=== PATIENT | female | born 1985 | race Caucasian/White ===

== ENCOUNTER → 2016-09-08 | Outpatient (CLI) | payer OTHER ==
[~2016-09-08] MED LIST: MULT-506 PO
[2016-09-08 17:23] LABS: ALT/SGPT 33 U/L (12-78); BLOOD UREA NITROGEN 15 mg/dl (7-18); BUN/CREATININE RATIO 21.6 (10-20); CARBON DIOXIDE 24 mmol/L (21-32); CHLORIDE 103 mmol/L (98-107); CREATININE 0.67 mg/dl (0.60-1.20); GLUCOSE 85 mg/dl (70-99); MAGNESIUM 2.2 mg/dl (1.8-2.4); POTASSIUM 3.9 mmol/L (3.5-5.1); SODIUM 137 mmol/L (136-145)
[2016-09-08 17:29] LABS: BASO % 0.4 %; BASO ABS # 0.02 K/uL (0-0.2); COMPLETE YES; EOS % 1.8 %; IG% 0.2 %; LYMPH % 30.2 %; LYMPH ABS # 1.51 K/uL (1.2-3.4); MEAN CELL VOLUME 86.5 fL (80-100); MEAN CORPUSCULAR HEMOGLOBIN 29.7 pg (25-34); MEAN CORPUSCULAR HGB CONC 34.4 g/dl (32-36); MEAN PLATELET VOLUME 11.4 fL (7.4-10.4); MONO % 7.2 %; NEUT % 60.2 %; PLATELET COUNT 176 K/uL (130-400); RED BLOOD COUNT 4.74 M/uL (4.2-5.4)
[2016-09-08 17:34] LABS: ALB/GLOB RATIO 1.4 (0.9-2); ALKALINE PHOSPHATASE 49 U/L (45-117); AST/SGOT 20 U/L (15-37); FERRITIN 24.3 ng/ml (8.0-388.0)
[2016-09-13 11:31] LABS: VIT E ALPHA-TOCOPHEROL 12.2 mg/L (5.7-19.9); VIT E BETA&GAMMA-TOCOPHEROL <1.0 mg/L (<=4.3); VITAMIN A** TC 921X 64 mcg/dL (38-98)
== END | disposition home or self-care (01) ==
LOC: C.LABBFT 12:07
PROVIDERS: ATTEND Nurse Practitioner Family
DX: R53.83 Other fatigue (principal); R42 Dizziness and giddiness; R51 Headache

== ENCOUNTER → 2017-08-14 | Outpatient (CLI) | payer OTHER | END | disposition home or self-care (01) | LOC: C.PAPS 10:10 | PROVIDERS: ATTEND Physician Assistant | DX: Z12.4 Encounter for screening for malignant neoplasm of cervix (principal); Z11.51 Encounter for screening for human papillomavirus (HPV) ==

== ENCOUNTER 2019-10-28 07:18 | Inpatient (IN) ==
[2019-10-28] MEDS ORDERED: OXYTOCIN 30 UNITS/500 ML BAG IV PRN ×2 (07:31)
[2019-10-28 07:57] LABS: Hematocrit (blood only) 39.2 % (37-47); Hemoglobin 13.8 g/dL (12.0-16.0); Mean Corpuscular Hemoglobin 31.4 pg (25-34); Mean Corpuscular Volume 89.1 fL (80-100); Mean Platelet Volume 11.1 fL (7.4-10.4); Platelet Count 143 K/uL (130-400); RDW Coefficient of Variation 14.1 % (11.5-14.5); RDW Standard Deviation 46.2 fL (36.4-46.3); White Blood Count 13.37 K/uL (4.8-10.8)
[2019-10-28 07:58] LABS: Mean Corpuscular Hgb Conc 35.2 g/dL (32-36)
--- NOTE | 2019-10-28 08:44 | History & Physical Report ---
Date of Service October 28, 2019 Assessment & Plan (1) with 41 completed weeks gestation: IUP at 41 weeks in active labor antcipate vaginal ambulate now, epidural when ready. History of Present Illness Primary Care Provider: Carmine Sutton Patient is a 34 yo white female EDC 10/19/19 who presents at 41 weeks for IOL. She had a cervical balloon placed last PM and started to have regular contractions at 0200. (+)bloody show. She may have been leaking some fluid as well after 0200. contractions are now every 5 minutes. GBS negative. blood type O positive. Allergies Allergy/AdvReac Type Severity Reaction Status Date / Time diphtheria,pertussis Allergy Rash Verified 10/28/19 08:01 (acellular),te [From Adacel(Tdap Adolesn/Adult)(PF)] Home Medications Home Medications Medication Instructions Recorded Confirmed Type cholecalciferol (vitamin D3) 50 2,000 units PO DAILY 03/03/19 10/28/19 History mcg (2,000 unit) capsule escitalopram oxalate 5 mg tablet 5 mg PO DAILY 03/03/19 10/28/19 History ferrous sulfate 25 mg PO DAILY 10/27/19 10/28/19 History vit-iron fum-folic ac 1 tab PO DAILY 10/27/19 10/28/19 History [ Vitamin] Patient History Medical History Breast discharge False labor after 37 completed weeks of gestation Surgical History S/P tonsillectomy Family History Mother Dyslipidemia Ovarian cyst Father Heart disease Myocardial infarction Social History Preferred Language: Indonesian Communication Ability: Effective Natural Developer Required: No Beliefs That Will Affect Care: None marital status: marital status details: Compa Beltran (31)- [phone] Current Living Situation: Spouse Current Living Situation Comment: lives with spouse and dog, 1 cat. spouse to change litter. 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- [place] Other Information That Helps Us Care for You: No Feels Safe at Home: Yes Safety Concerns: Feels Safe At This Time Smoking Status: Never smoker Hx Alcohol Use: No Hx Substance Use: No Review of Systems All systems reviewed & are unremarkable except as noted in HPI & below Physical Exam Constitutional: WD/WN, vitals as above Respiratory: normal respiratory effort, lungs clear to auscultation Cardiovascular: RRR, no murmur, no edema Gastrointestinal (Abdomen): normal bowel sounds, soft, nontender, no hepatosplenomegaly Psychiatric: A+Ox3, euthymic affect Genitourinary: OB Exam Abdomen: + vertex, + estimated weight (7-8 pounds) and + regular contractions Manual OB Exam: + cervical dilation 6 cm, + cervical effacement 90% and + station -2 OB Exam Monitor Tracing: + external FHT monitor used, + external uterine monitor used, + category I and + normal FHT variability AROM for clear fluid Results & Data Vital Signs (Past 12 Hours) Vital Signs Temp Pulse Resp BP 10/28/19 07:42 85 122/74 10/28/19 07:40 98.6 F 20 Coding Level of Care Code None Diagnoses with 41 completed weeks gestation Z3A.41
[2019-10-28] MEDS: LACTATED RINGER'S 1,000 ML IV PRN ×3 (13:46→21:56)
[2019-10-28] MEDS ORDERED: BUPIVACAINE 0.25% 30 ML VIAL ONE (13:49)
[2019-10-28] MEDS ORDERED: ePHEDrine sulfate 50 MG/ML AMP ONE (13:49)
[2019-10-28] MEDS ORDERED: fentaNYL citrate 100 MCG/2 ML VIAL ONE (13:50)
[2019-10-28] MEDS ORDERED: fentaNYL 2MCG/ML ROPIV 1.25MG/ML 100 ML BAG EPI ONE (13:51)
--- NOTE | 2019-10-28 14:27 | Anesthesiology Consultation ---
Date of Service October 28, 2019 Assessment & Plan Chart Review Chart Review: Acceptable Risk for Labor Epidural Consults Requested none History Height/Weight Height: 5 ft 1 in Weight: 81.193 kg Allergies Allergy/AdvReac Type Severity Reaction Status Date / Time diphtheria,pertussis Allergy Rash Verified 10/28/19 08:01 (acellular),te [From Adacel(Tdap Adolesn/Adult)(PF)] Medications Home Medications Medication Instructions Recorded Confirmed Last Taken cholecalciferol (vitamin D3) 50 2,000 units PO DAILY 03/03/19 10/28/19 10/28/19 07:15 mcg (2,000 unit) capsule escitalopram oxalate 5 mg tablet 5 mg PO DAILY 03/03/19 10/28/19 10/28/19 07:15 ferrous sulfate 25 mg PO DAILY 10/27/19 10/28/19 10/27/19 13:00 vit-iron fum-folic ac 1 tab PO DAILY 10/27/19 10/28/19 10/27/19 13:00 [ Vitamin] Active Medications Generic Name Dose Route Start Last Admin Trade Name Freq PRN Reason Stop Dose Admin Lactated Ringer's 1,000 mls @ 125 mls/hr 10/28/19 07:31 10/28/19 14:25 Lr IV 10/30/19 07:30 125 mls/hr .Q8H PRN Infusion L&D Protocol Protocol Past Medical History Medical History Breast discharge False labor after 37 completed weeks of gestation Past Family History Family History Mother Dyslipidemia Ovarian cyst Father Heart disease Myocardial infarction Past Surgical History Surgical History S/P tonsillectomy Social History Smoking Status: Never smoker Hx Alcohol Use: No Hx Substance Use: No Physical Exam Vital Signs Last Vital Signs Temp 37.0 C 10/28/19 12:05 Pulse 87 10/28/19 14:26 Resp 20 10/28/19 14:14 BP 122/76 10/28/19 14:26 Pulse Ox 94 10/28/19 14:23 Testing Laboratory Results 10/28/19 07:42
[2019-10-28] MEDS ORDERED: NALOXONE HCL 1 MG in SODIUM CHLORIDE 0.9% 1000ML 1,000 ML IV PRN (14:28)
[2019-10-28] MEDS ORDERED: ePHEDrine sulfate 50 MG/ML AMP IV PRN (14:28)
[2019-10-28] MEDS ORDERED: NALOXONE HCL 0.4 MG/1 ML VIAL/CARP IV PRN (14:28)
[2019-10-28] MEDS ORDERED: NALBUPHINE HCL INJ 10 MG/ML AMP IV PRN (14:28)
[2019-10-28] MEDS ORDERED: DiphenhydrAMINE HCL 50 MG/ML VIAL IV PRN (14:28)
[2019-10-28] MEDS ORDERED: CALCIUM CARBONATE 500 MG CHEWABLE TAB PO PRN (18:03)
[2019-10-28] MEDS: fentaNYL 2MCG/ML ROPIV 1.25MG/ML 100 ML BAG EPI PRN (21:36)
[2019-10-28] MEDS ORDERED: Nursing to Pharmacy Communication ONE (22:01)
[2019-10-29] MEDS: LACTATED RINGER'S 1,000 ML IV PRN ×3 (02:32→09:01)
[2019-10-29] MEDS: fentaNYL 2MCG/ML ROPIV 1.25MG/ML 100 ML BAG EPI PRN ×2 (02:32→08:45)
[2019-10-29] MEDS ORDERED: CITRIC ACID/SODIUM CITRATE 15 ML UDC PO SCH (06:00)
[2019-10-29] MEDS ORDERED: LIDOCAINE HCL 2% MPF (LOCAL) 5 ML VIAL INFIL ONE (07:44)
[2019-10-29] MEDS ORDERED: BUPIVACAINE 0.25% 30 ML VIAL ONE (09:50)
[2019-10-29] MEDS ORDERED: fentaNYL citrate 100 MCG/2 ML VIAL ONE ×2 (09:50→15:05)
--- NOTE | 2019-10-29 11:08 | Labor Progress Brief Note ---
Date of Service October 29, 2019 Subjective Patient is much more comfortable with redosing of epidural. FHT category 1 Wenonah Q 2 min SVE 9/100/0 to +1 station. In review of nursing notes, cervix was 4cm at 6pm last night and 7cm at approx 2am. It looks like overnight last night, it was difficult to get a regular contraction pattern, but patient is now regularly nataly. I discussed this with patient - given that FHT are reassuring, I think it is worthwhile to give her the opportunity to continue to labor, with hopes of vaginal delivery. Discussed with patient that if either FHT become non- reassuring or if no further progress, will recommend . Patient is agreeable to this plan. Results & Data Vital Signs (Past 12 Hours) Vital Signs Temp Pulse Resp BP Pulse Ox 10/29/19 11:03 90 91 10/29/19 10:58 92 H 91 10/29/19 10:55 89 119/76 10/29/19 10:53 90 91 10/29/19 10:48 92 H 91 10/29/19 10:43 94 H 91 10/29/19 10:38 91 H 93 10/29/19 10:33 88 93 10/29/19 10:28 91 H 95 10/29/19 10:23 96 H 94 10/29/19 10:22 37.4 C 98 H 18 123/72 10/29/19 10:18 108 H 128/74 96 10/29/19 10:13 99 H 121/79 95 10/29/19 10:08 98 H 121/78 95 10/29/19 10:03 95 H 96 10/29/19 10:02 92 H 137/76 10/29/19 09:58 93 H 96 10/29/19 09:57 89 113/55 L 10/29/19 09:53 96 H 97 10/29/19 09:52 94 H 142/84 H 10/29/19 09:48 106 H 95 10/29/19 09:43 95 H 136/81 95 10/29/19 09:38 98 H 97 10/29/19 09:33 96 H 96 10/29/19 09:28 97 H 96 10/29/19 09:23 104 H 98 10/29/19 09:18 108 H 96 10/29/19 09:13 102 H 95 10/29/19 09:12 96 H 140/81 10/29/19 09:08 101 H 97 10/29/19 09:03 106 H 95 10/29/19 08:58 98 H 96 10/29/19 08:53 97 H 97 10/29/19 08:48 98 H 97 10/29/19 08:43 37.2 C 96 H 20 94 10/29/19 08:38 98 H 95 10/29/19 08:37 98 H 122/74 10/29/19 08:33 100 H 124/75 95 10/29/19 08:28 98 H 118/73 94 10/29/19 08:23 101 H 95 10/29/19 08:22 100 H 122/78 10/29/19 08:18 96 H 96 10/29/19 08:17 100 H 117/72 10/29/19 08:13 101 H 119/70 96 10/29/19 08:08 107 H 116/74 95 10/29/19 08:03 117 H 97 10/29/19 08:02 111 H 116/69 10/29/19 07:59 115 H 119/72 10/29/19 07:58 109 H 97 10/29/19 07:53 111 H 92 10/29/19 07:52 108 H 111/70 10/29/19 07:48 98 H 94 10/29/19 07:47 101 H 121/74 10/29/19 07:43 111 H 122/72 96 10/29/19 07:38 105 H 94 10/29/19 07:36 105 H 120/72 10/29/19 07:33 107 H 94 10/29/19 07:30 106 H 119/75 10/29/19 07:28 112 H 96 10/29/19 07:23 107 H 96 10/29/19 07:18 99 H 95 10/29/19 07:15 37.2 C 103 H 18 124/75 10/29/19 07:13 106 H 95 10/29/19 07:08 101 H 95 10/29/19 07:03 101 H 95 10/29/19 06:59 100 H 119/66 10/29/19 06:58 100 H 96 10/29/19 06:53 101 H 95 10/29/19 06:48 95 H 97 10/29/19 06:46 96 H 126/71 10/29/19 06:43 94 H 95 10/29/19 06:38 95 H 95 10/29/19 06:33 105 H 97 10/29/19 06:31 100 H 18 133/76 10/29/19 06:28 104 H 94 10/29/19 06:27 108 H 89 L 10/29/19 06:23 102 H 95 10/29/19 06:21 116 H 87 L 10/29/19 06:18 104 H 96 10/29/19 06:14 108 H 125/73 10/29/19 06:13 110 H 97 10/29/19 06:08 104 H 96 10/29/19 06:03 99 H 92 10/29/19 06:00 107 H 122/67 10/29/19 05:58 103 H 93 10/29/19 05:53 116 H 93 10/29/19 05:48 100 H 95 10/29/19 05:45 109 H 121/74 10/29/19 05:43 107 H 93 10/29/19 05:38 109 H 93 10/29/19 05:35 118 H 89 L 10/29/19 05:33 105 H 94 10/29/19 05:29 106 H 119/75 10/29/19 05:28 117 H 93 10/29/19 05:23 112 H 93 10/29/19 05:20 37.3 C 16 10/29/19 05:18 93 H 90 10/29/19 05:14 87 112/67 10/29/19 05:13 88 90 10/29/19 05:08 89 91 10/29/19 05:03 101 H 94 10/29/19 04:59 88 16 112/69 10/29/19 04:58 99 H 94 10/29/19 04:53 95 H 91 10/29/19 04:48 89 90 10/29/19 04:45 90 116/70 10/29/19 04:44 87 89 L 10/29/19 04:43 91 H 90 10/29/19 04:38 92 H 91 10/29/19 04:33 91 H 89 L 10/29/19 04:31 90 89 L 10/29/19 04:29 97 H 116/70 10/29/19 04:28 90 90 10/29/19 04:23 104 H 94 10/29/19 04:18 96 H 92 10/29/19 04:13 96 H 89 L 10/29/19 04:08 92 H 91 10/29/19 04:03 94 H 92 10/29/19 03:58 97 H 93 10/29/19 03:53 111 H 94 10/29/19 03:48 120 H 94 10/29/19 03:46 90 114/70 10/29/19 03:43 97 H 88 L 10/29/19 03:38 94 H 91 10/29/19 03:33 98 H 92 10/29/19 03:30 93 H 111/68 10/29/19 03:28 89 90 10/29/19 03:23 89 91 10/29/19 03:18 102 H 94 10/29/19 03:15 37.3 C 99 H 16 110/67 10/29/19 03:14 89 89 L 10/29/19 03:13 87 90 10/29/19 03:08 91 H 91 10/29/19 03:03 92 H 90 10/29/19 02:59 91 H 112/68 10/29/19 02:58 91 H 91 10/29/19 02:53 96 H 94 10/29/19 02:48 89 91 10/29/19 02:46 90 115/68 10/29/19 02:43 90 92 10/29/19 02:38 90 92 10/29/19 02:33 95 H 94 10/29/19 02:31 93 H 16 121/69 10/29/19 02:28 101 H 96 10/29/19 02:23 105 H 95 10/29/19 02:18 106 H 97 10/29/19 02:17 99 H 20 121/73 10/29/19 02:13 111 H 95 10/29/19 02:08 105 H 94 10/29/19 02:03 103 H 94 10/29/19 02:00 91 H 20 104/56 L 10/29/19 01:58 99 H 92 10/29/19 01:53 90 91 10/29/19 01:48 88 90 10/29/19 01:44 97 H 108/53 L 10/29/19 01:43 90 91 10/29/19 01:38 87 91 10/29/19 01:33 89 92 10/29/19 01:30 89 18 118/59 L 10/29/19 01:28 99 H 92 10/29/19 01:23 95 H 92 10/29/19 01:18 101 H 92 10/29/19 01:15 37.2 C 103 H 18 109/56 L 10/29/19 01:13 108 H 93 10/29/19 01:08 103 H 93 10/29/19 01:03 128 H 94 10/29/19 00:59 93 H 110/61 10/29/19 00:58 105 H 91 10/29/19 00:53 92 H 91 10/29/19 00:48 91 H 91 10/29/19 00:44 110/55 L 10/29/19 00:43 100 H 92 10/29/19 00:38 105 H 95 10/29/19 00:33 103 H 95 10/29/19 00:30 103 H 112/56 L 10/29/19 00:28 96 H 93 10/29/19 00:23 95 H 93 10/29/19 00:18 98 H 94 10/29/19 00:15 94 H 115/58 L 10/29/19 00:13 92 H 95 10/29/19 00:08 97 H 96 10/29/19 00:04 37.8 C H 20 10/29/19 00:03 98 H 95 10/28/19 23:59 102 H 20 117/66 10/28/19 23:58 111 H 97 10/28/19 23:53 101 H 98 10/28/19 23:48 105 H 95 10/28/19 23:44 109 H 118/67 10/28/19 23:43 110 H 95 10/28/19 23:38 102 H 95 10/28/19 23:33 109 H 94 10/28/19 23:30 116 H 116/76 10/28/19 23:28 115 H 94 10/28/19 23:23 117 H 96 10/28/19 23:18 126 H 93 10/28/19 23:14 102 H 120/63 10/28/19 23:13 97 H 95 10/28/19 23:08 96 H 92 Coding Level of Care Code None
--- NOTE | 2019-10-29 12:50 | Labor Progress Brief Note ---
Date of Service October 29, 2019 Subjective Comfortable with epidural. 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 Will continue pushing. Hopeful for vaginal delivery. Results & Data Vital Signs (Past 12 Hours) Vital Signs Temp Pulse Resp BP Pulse Ox 10/29/19 12:46 120 H 84 L 10/29/19 12:44 141 H 79 L 10/29/19 12:39 110 H 94 10/29/19 12:35 117 H 86 L 10/29/19 12:33 106 H 94 10/29/19 12:28 102 H 95 10/29/19 12:24 99 H 117/70 10/29/19 12:23 101 H 95 10/29/19 12:18 115 H 95 10/29/19 12:13 106 H 94 10/29/19 12:08 101 H 94 10/29/19 12:03 96 H 93 10/29/19 11:58 96 H 92 10/29/19 11:55 93 H 107/65 10/29/19 11:53 108 H 94 10/29/19 11:48 87 91 10/29/19 11:43 93 H 92 10/29/19 11:38 91 H 91 10/29/19 11:33 103 H 92 10/29/19 11:28 97 H 92 10/29/19 11:27 95 H 126/79 10/29/19 11:23 97 H 92 10/29/19 11:18 97 H 92 10/29/19 11:13 108 H 92 10/29/19 11:08 91 H 91 10/29/19 11:03 90 91 10/29/19 10:58 92 H 91 10/29/19 10:55 89 119/76 10/29/19 10:53 90 91 10/29/19 10:48 92 H 91 10/29/19 10:43 94 H 91 10/29/19 10:38 91 H 93 10/29/19 10:33 88 93 10/29/19 10:28 91 H 95 10/29/19 10:23 96 H 94 10/29/19 10:22 37.4 C 98 H 18 123/72 10/29/19 10:18 108 H 128/74 96 10/29/19 10:13 99 H 121/79 95 10/29/19 10:08 98 H 121/78 95 10/29/19 10:03 95 H 96 10/29/19 10:02 92 H 137/76 10/29/19 09:58 93 H 96 10/29/19 09:57 89 113/55 L 10/29/19 09:53 96 H 97 10/29/19 09:52 94 H 142/84 H 10/29/19 09:48 106 H 95 10/29/19 09:43 95 H 136/81 95 10/29/19 09:38 98 H 97 10/29/19 09:33 96 H 96 10/29/19 09:28 97 H 96 10/29/19 09:23 104 H 98 10/29/19 09:18 108 H 96 10/29/19 09:13 102 H 95 10/29/19 09:12 96 H 140/81 10/29/19 09:08 101 H 97 10/29/19 09:03 106 H 95 10/29/19 08:58 98 H 96 10/29/19 08:53 97 H 97 10/29/19 08:48 98 H 97 10/29/19 08:43 37.2 C 96 H 20 94 10/29/19 08:38 98 H 95 10/29/19 08:37 98 H 122/74 10/29/19 08:33 100 H 124/75 95 10/29/19 08:28 98 H 118/73 94 10/29/19 08:23 101 H 95 10/29/19 08:22 100 H 122/78 10/29/19 08:18 96 H 96 10/29/19 08:17 100 H 117/72 10/29/19 08:13 101 H 119/70 96 10/29/19 08:08 107 H 116/74 95 10/29/19 08:03 117 H 97 10/29/19 08:02 111 H 116/69 10/29/19 07:59 115 H 119/72 10/29/19 07:58 109 H 97 10/29/19 07:53 111 H 92 10/29/19 07:52 108 H 111/70 10/29/19 07:48 98 H 94 10/29/19 07:47 101 H 121/74 10/29/19 07:43 111 H 122/72 96 10/29/19 07:38 105 H 94 10/29/19 07:36 105 H 120/72 10/29/19 07:33 107 H 94 10/29/19 07:30 106 H 119/75 10/29/19 07:28 112 H 96 10/29/19 07:23 107 H 96 10/29/19 07:18 99 H 95 10/29/19 07:15 37.2 C 103 H 18 124/75 10/29/19 07:13 106 H 95 10/29/19 07:08 101 H 95 10/29/19 07:03 101 H 95 10/29/19 06:59 100 H 119/66 10/29/19 06:58 100 H 96 10/29/19 06:53 101 H 95 10/29/19 06:48 95 H 97 10/29/19 06:46 96 H 126/71 10/29/19 06:43 94 H 95 10/29/19 06:38 95 H 95 10/29/19 06:33 105 H 97 10/29/19 06:31 100 H 18 133/76 10/29/19 06:28 104 H 94 10/29/19 06:27 108 H 89 L 10/29/19 06:23 102 H 95 10/29/19 06:21 116 H 87 L 10/29/19 06:18 104 H 96 10/29/19 06:14 108 H 125/73 10/29/19 06:13 110 H 97 10/29/19 06:08 104 H 96 10/29/19 06:03 99 H 92 10/29/19 06:00 107 H 122/67 10/29/19 05:58 103 H 93 10/29/19 05:53 116 H 93 10/29/19 05:48 100 H 95 10/29/19 05:45 109 H 121/74 10/29/19 05:43 107 H 93 10/29/19 05:38 109 H 93 10/29/19 05:35 118 H 89 L 10/29/19 05:33 105 H 94 10/29/19 05:29 106 H 119/75 10/29/19 05:28 117 H 93 10/29/19 05:23 112 H 93 10/29/19 05:20 37.3 C 16 10/29/19 05:18 93 H 90 10/29/19 05:14 87 112/67 10/29/19 05:13 88 90 10/29/19 05:08 89 91 10/29/19 05:03 101 H 94 10/29/19 04:59 88 16 112/69 10/29/19 04:58 99 H 94 10/29/19 04:53 95 H 91 10/29/19 04:48 89 90 10/29/19 04:45 90 116/70 10/29/19 04:44 87 89 L 10/29/19 04:43 91 H 90 10/29/19 04:38 92 H 91 10/29/19 04:33 91 H 89 L 10/29/19 04:31 90 89 L 10/29/19 04:29 97 H 116/70 10/29/19 04:28 90 90 10/29/19 04:23 104 H 94 10/29/19 04:18 96 H 92 10/29/19 04:13 96 H 89 L 10/29/19 04:08 92 H 91 10/29/19 04:03 94 H 92 10/29/19 03:58 97 H 93 10/29/19 03:53 111 H 94 10/29/19 03:48 120 H 94 10/29/19 03:46 90 114/70 10/29/19 03:43 97 H 88 L 10/29/19 03:38 94 H 91 10/29/19 03:33 98 H 92 10/29/19 03:30 93 H 111/68 10/29/19 03:28 89 90 10/29/19 03:23 89 91 10/29/19 03:18 102 H 94 10/29/19 03:15 37.3 C 99 H 16 110/67 10/29/19 03:14 89 89 L 10/29/19 03:13 87 90 10/29/19 03:08 91 H 91 10/29/19 03:03 92 H 90 10/29/19 02:59 91 H 112/68 10/29/19 02:58 91 H 91 10/29/19 02:53 96 H 94 10/29/19 02:48 89 91 10/29/19 02:46 90 115/68 10/29/19 02:43 90 92 04/15/20 02:38 90 92 10/29/19 02:33 95 H 94 10/29/19 02:31 93 H 16 121/69 10/29/19 02:28 101 H 96 10/29/19 02:23 105 H 95 10/29/19 02:18 106 H 97 10/29/19 02:17 99 H 20 121/73 10/29/19 02:13 111 H 95 10/29/19 02:08 105 H 94 10/29/19 02:03 103 H 94 10/29/19 02:00 91 H 20 104/56 L 10/29/19 01:58 99 H 92 10/29/19 01:53 90 91 10/29/19 01:48 88 90 10/29/19 01:44 97 H 108/53 L 10/29/19 01:43 90 91 10/29/19 01:38 87 91 10/29/19 01:33 89 92 10/29/19 01:30 89 18 118/59 L 10/29/19 01:28 99 H 92 10/29/19 01:23 95 H 92 10/29/19 01:18 101 H 92 10/29/19 01:15 37.2 C 103 H 18 109/56 L 10/29/19 01:13 108 H 93 10/29/19 01:08 103 H 93 10/29/19 01:03 128 H 94 10/29/19 00:59 93 H 110/61 10/29/19 00:58 105 H 91 10/29/19 00:53 92 H 91 Coding Level of Care Code None
--- NOTE | 2019-10-29 14:48 | History & Physical Bridge Note ---
Date of Service October 29, 2019 History & Physical Bridge Note I have examined the patient, reviewed the History & Physical and in the interval since the performance of the History & Physical I have noted the following changes of clinical significance: no changes noted. Patient has been pushing for 2 hours. station has not improved during that time from 0 to +1 station. heart tracing is now consistently in the 170s. I have discussed section with patient, she feels exhausted and would rather move towards than continue pushing. Reviewed RBA, informed consent. Patient agreeable to proceed with .
[2019-10-29] MEDS ORDERED: CEFAZOLIN 2000MG 2,000 MG/15 ML SYR IV SCH (15:00)
[2019-10-29] MEDS ORDERED: ePHEDrine sulfate 50 MG/ML AMP ONE (15:05)
[2019-10-29] MEDS ORDERED: PHENYLEPHRINE HCL 10 MG/ML VIAL ONE (15:05)
[2019-10-29] MEDS ORDERED: METOCLOPRAMIDE HCL INJ 5 MG/ML 2 ML VIAL ONE (15:05)
[2019-10-29] MEDS ORDERED: MoRPHine SULFATE PF 1 MG/ML 10 ML AMP/VIAL ONE (15:05)
[2019-10-29] MEDS ORDERED: OXYTOCIN 10 UNITS/ML VIAL ONE ×5 (15:05→16:13)
[2019-10-29] MEDS ORDERED: ONDANSETRON INJ 2 MG/ML 2 ML VIAL ONE (15:05)
[2019-10-29] MEDS ORDERED: METHYLENE BLUE 0.5% 10 ML VIAL ONE (15:47)
[2019-10-29 16:04] LABS: Cord Venous Blood HCO3 23 mmol/L (18.4-26.8); Cord Venous Blood PCO2 46 mmHg (30.4-57.2); Cord Venous Blood PO2 20 mmHg (14.1-43.3); Cord Venous Blood pH 7.32 (7.20-7.44)
[2019-10-29 16:10] LABS: Base Excess Cord Arterial Bld -3.3 mEq/L (-9-1.8); CO2 Cord Arterial Blood 58 mmHg (39.1-73.5); HCO3 Cord Arterial Blood 25 mmol/L (19.7-28.5); O2 Saturation Cord Venous Bld < 60.0 % (<68); pH Cord Arterial Blood 7.25 (7.1-7.38)
[2019-10-29 16:11] LABS: Oxygen Sat Cord Arterial Blood < 60.0 % (<60)
[2019-10-29 16:13] LABS: PO2 Cord Arterial Blood < 10 mmHg (4.1-31.7)
[2019-10-29] MEDS ORDERED: METHYLERGONOVINE MALEATE 0.2 MG/ML AMP ONE (16:13)
[2019-10-29] MEDS ORDERED: PHENYLEPHRINE 100MCG/ML 5ML SYR ONE (16:14)
[2019-10-29] MEDS ORDERED: MoRPHine SULFATE 2 MG/ML CARP IV PRN (16:20)
[2019-10-29] MEDS ORDERED: MoRPHine SULFATE PF 1 MG/ML 10 ML AMP/VIAL INT SPINAL ONE (16:20)
[2019-10-29] MEDS ORDERED: ePHEDrine sulfate 50 MG/ML AMP IV PRN (16:20)
[2019-10-29] MEDS ORDERED: LACTATED RINGER'S 500 ML IV PRN (16:20)
[2019-10-29] MEDS ORDERED: NALOXONE HCL 1 MG in SODIUM CHLORIDE 0.9% 1000ML 1,000 ML IV PRN (16:20)
[2019-10-29] MEDS ORDERED: NALOXONE HCL 0.4 MG/1 ML VIAL/CARP IV PRN (16:20)
[2019-10-29] MEDS ORDERED: NALBUPHINE HCL INJ 10 MG/ML AMP IV PRN (16:20)
[2019-10-29] MEDS ORDERED: DiphenhydrAMINE HCL 50 MG/ML VIAL IV PRN (16:20)
[2019-10-29] MEDS ORDERED: METOCLOPRAMIDE HCL 20 MG in SODIUM CHLORIDE 0.9% 50 ML IV PRN (16:20)
[2019-10-29] MEDS ORDERED: ONDANSETRON INJ 2 MG/ML 2 ML VIAL IV PRN (16:20)
[2019-10-29] MEDS ORDERED: PROMETHAZINE HCL 25 MG in SODIUM CHLORIDE 0.9% 50 ML IV PRN (16:20)
[2019-10-29] MEDS ORDERED: NALOXONE HCL 0.08 MG in SYRINGE 1.8 ML IV PRN (16:20)
[2019-10-29] MEDS ORDERED: SODIUM CHLORIDE 0.9% 1000ML 1,000 ML IV SCH (16:30)
[2019-10-29] MEDS ORDERED: NO NARCOTICS OR SEDATIVES SCH (16:30)
--- NOTE | 2019-10-29 16:32 | Operative Report ---
PG Post Operative Report Pre & Post Diagnosis Operation Date: 10/29/19 14:50 Pre-Op Diagnosis: 1. Failure to Descend 2. Intolerance to Labor Post-Op Diagnosis: Same I identified the patient and participated in the time-out.: Yes Procedure Operation Date: 10/29/19 14:50 Actual Procedures p Section in LD; Primary Lower Uterine Transverse for the of a live girl at 1530.(Bilateral) - Aurora Teague DO Surgeon Aurora Teague DO Blender Raquel Hensley MD Estimated Blood Loss 700 Findings Consistent with Post-Op Diagnosis Viable female , Apgars 8/9. Weight 7#14. Nuchal cord x 1. Normal uterus, tubes, ovaries. Specimens placenta, cord blood, cord gas Drains kimball, clear but concentrated and red-tinged urine. Anesthesia Type L&D Only Epidural Exists Complications none Disposition Accompanied Patient To Recovery: Yes Disposition: L&D Indications 34yo @ 41 3/7, induction of labor for postdates, progressed to complete dilation. Pushed for 2 hours with no improvement in station, and baby began to become intolerant of labor with tachycardia. Patient elected for section. Description of Procedure The patient was consented in her room. Risks, benefits and alternatives were discussed. All questions were answered. She elected to proceed with section. She was given 2 g of Ancef preoperatively. She was taken to the operating room, epidural anesthesia was redosed. Timeout was confirmed. Adequate anesthesia was checked. A Pfannenstiel skin incision was made with a scalpel, and carried through to the underlying layer of fascia. The fascia was nicked at midline, and the since this incision was extended bilaterally bluntly. The superior aspect of the fascial incision was grasped with Belinda clamps x2, elevated off the underlying rectus abdominis muscles, and dissected bluntly. In similar fashion, the inferior aspect of the fascial incision was dissected. The rectus abdominis muscles were at midline. The peritoneum was entered bluntly digitally. This incision was extended bluntly. A large amount of peritoneal fluid was noted. The bladder blade was placed. The bladder flap was taken down using Metzenbaum scissors. The bladder blade was replaced. A low uterine transverse incision was made with a new scalpel. This incision was extended bilaterally. The infant was delivered from a cephalic presentation. The head delivered, nuchal cord x1 was noted and easily reduced. Bilateral shoulders were delivered, followed by body. The infant's mouth and nose were suctioned on the field, and the cord was doubly clamped and cut. The infant was handed over to the waiting school transportation director. A segment was retained for cord gases. Cord blood was obtained. The placenta was delivered spontaneously intact with a three-vessel cord. The uterus was then exteriorized, and cleared of all clots and debris. The hysterotomy incision was reapproximated using 0 Vicryl in a running locked stitch. At this time, the uterus was noted to be boggy, and dilute Pitocin was running through her IV. I asked anesthesiologist to give a dose of Methergine to help with uterine tone and hemostasis. This was successful. A second layer of the same suture was used to imbricate the incision. The posterior uterus was evaluated and normal. There was urine in the Kimball catheter that was concentrated and had red-tinged. The bladder was evaluated, no obvious damage to bladder was noted. However, due to the red tinge in the urine, we elected to backfilled the bladder with diluted methylene blue. Bladder was backfilled with approximately 200 cc of methylene blue, and no injury to the bladder was observed. The uterus was returned to the abdomen. Gutters were cleared of clots and debris. The hysterotomy incision was noted to be hemostatic. There was a small amount of oozing on the anterior aspect of the uterus. This was made hemostatic using Bovie cautery and [id number] sutures. Surgical foam was placed on the anterior aspect of the uterus to ensure excellent hemostasis. The fascial incision was reapproximated using 0 Vicryl in a running stitch. The subcutaneous tissue was irrigated, and reapproximated using 2-0 plain gut suture in a running stitch. The skin incision was reapproximated using 4-0 Vicryl in a running subcuticular stitch. Sponge, instrument, needle counts were correct at the conclusion of the case x2. Patient tolerated the procedure well, and was taken to the recovery area in stable and good condition. I attest to the content of the Intraoperative Record and any orders documented therein. Any exceptions are noted below.
--- NOTE | 2019-10-29 16:41 | Anesthesia Procedure Note ---
Date of Service October 29, 2019 Anesthesia Post Epidural Note Vital Signs Vital Signs: Temp Pulse Resp BP Pulse Ox 37.5 C 90 20 125/63 97 10/29/19 14:42 10/29/19 16:35 10/29/19 14:42 10/29/19 16:31 10/29/19 16:35 Pain Intensity Bilateral Abdomen: Pain Intensity: 9 Notes Mental Status: alert / awake / arousable and participated in evaluation Nausea / Vomiting: adequately controlled Pain: adequately controlled Airway Patency, RR, SpO2: stable & adequate BP & HR: stable & adequate Hydration State: stable & adequate Neuraxial Anesthesia: was administered, sensory block is resolving and see Notes below Anesthetic Complications: no major complications apparent and Pt Satisfied with anesthetic care Epidural: Removed without complications and With tip intact Notes: pt with high level during C/S, but VSS throughout able to head lift sustained, speak, and have acceptable hand phd intern. Able to wiggle toes and numbness around mouth resolving in pacu. spoke with OB and will do extended monitoring to confirm full resolution prior to moving to maternity side.
[2019-10-29] MEDS: KETOROLAC 30 MG/ML VIAL IV PRN ×2 (16:49→23:00)
[2019-10-29] MEDS ORDERED: SEPRAFILM ADHESION BARR (4) 3X2.5IN TOP ONE (16:53)
[2019-10-29] MEDS ORDERED: GELATIN SPONGE SZ 100 EXT PRN (16:57)
[2019-10-29] MEDS ORDERED: BENZOCAINE 20% AER SPR 82.5 GM CAN EXT PRN (19:13)
[2019-10-29] MEDS ORDERED: SENNA 8.6 MG TAB PO PRN (19:13)
[2019-10-29] MEDS ORDERED: SUPERCREAM 0.870% 15 GM JAR EXT PRN (19:13)
[2019-10-29] MEDS ORDERED: HYDROCORTISONE ACETATE 25 MG SUPP PR PRN (19:13)
[2019-10-29] MEDS: OXYTOCIN 30 UNITS in LACTATED RINGER'S 1,000 ML IV SCH (19:50)
[2019-10-29] MEDS: DOCUSATE SODIUM 100 MG CAP PO SCH (21:31)
[2019-10-29] MEDS: SIMETHICONE 80 MG CHEW PO SCH ×2 (21:31→21:32)
[2019-10-30] MEDS: OXYTOCIN 30 UNITS in LACTATED RINGER'S 1,000 ML IV SCH (04:25)
--- NOTE | 2019-10-30 07:45 | Obstetrical Progress Note ---
Date of Service October 30, 2019 Assessment & Plan (1) : POD#1 doing well. Today: ambulate when kimball comes out, increase PO fluids and advance diet as tolerated. EPCs in place until ambulatory. Subjective Ambulation: limited ambulation Voiding: no voiding problems and kimball catheter in place Passing Gas:: Yes Diet Tolerance:: clear liquids Lochia:: Moderate Feeding Type:: breast feeding POD#0 doing well. Not ambulating yet, kimball is still in place with good output. Pain controlled. Passing gas, has had some water ice. Review of Systems All systems reviewed & are unremarkable except as noted in HPI & below Physical Exam Incision: bandaged, will keep this on for 24h postop. Bandage is clean/dry. Small amount of redness on skin above bandage, looks like reaction from sticky drape. Constitutional WD/WN, vitals as above no acute distress Respiratory normal respiratory effort Cardiovascular Rate/Rhythm: regular rate and regular rhythm Gastrointestinal (Abdomen) Inspection/Auscultation: abdomen normal to inspection; abdomen not distended Percussion/Palpation: abdomen soft Genitourinary OB Exam Abdomen: + fundal height Fundus: + firm; not tender Results & Data Vital Signs (Past 12 Hours) Vital Signs Temp Pulse Pulse Resp BP BP Pulse Ox 10/30/19 04:36 16 96 10/30/19 03:05 36.7 C 86 16 105/67 96 10/30/19 02:25 16 97 10/30/19 01:00 18 97 10/30/19 00:30 16 98 10/29/19 23:05 36.7 C 91 H 16 111/72 99 10/29/19 22:30 18 98 10/29/19 21:25 36.8 C 88 18 114/74 98 10/29/19 21:12 125 H 134/65 10/29/19 21:10 99 H 95 10/29/19 21:05 98 H 98 10/29/19 21:02 87 108/56 L 10/29/19 21:00 90 98 10/29/19 20:55 93 H 95 10/29/19 20:50 91 H 96 10/29/19 20:45 86 96 10/29/19 20:42 87 110/58 L 10/29/19 20:40 85 96 10/29/19 20:35 84 97 10/29/19 20:32 86 116/60 10/29/19 20:30 89 97 10/29/19 20:25 100 H 95 10/29/19 20:22 36.9 C 89 18 107/59 L 10/29/19 20:20 100 H 95 10/29/19 20:15 93 H 18 94 10/29/19 20:12 88 109/53 L 10/29/19 20:10 97 H 95 10/29/19 20:05 93 H 94 10/29/19 20:02 88 107/59 L 10/29/19 20:00 88 93 10/29/19 19:55 88 95 10/29/19 19:52 90 104/57 L 10/29/19 19:50 91 H 92 10/29/19 19:45 90 95
[2019-10-30] MEDS: PRENATAL VITAMIN 1 TAB PO SCH (07:55)
[2019-10-30] MEDS: KETOROLAC 30 MG/ML VIAL IV PRN ×2 (07:55→13:57)
[2019-10-30] MEDS: DOCUSATE SODIUM 100 MG CAP PO SCH (07:55)
[2019-10-30] MEDS: SIMETHICONE 80 MG CHEW PO SCH ×3 (07:55→19:45)
[2019-10-30] MEDS: ESCITALOPRAM OXALATE 10 MG TAB PO SCH (07:55)
[2019-10-30] MEDS: FERROUS SULFATE 325 MG TAB PO SCH (07:55)
[2019-10-30] MEDS ORDERED: PROMETHAZINE HCL 25 MG in SODIUM CHLORIDE 0.9% 50 ML IV PRN (16:20)
[2019-10-30] MEDS ORDERED: LACTATED RINGER'S 1,000 ML IV SCH (16:20)
[2019-10-30] MEDS ORDERED: ONDANSETRON INJ 2 MG/ML 2 ML VIAL IV PRN (16:20)
[2019-10-30] MEDS ORDERED: DC INTRASPINAL MORPHINE ONE (16:29)
[2019-10-30] MEDS ORDERED: DiphenhydrAMINE HCL 50 MG/ML VIAL IV PRN (16:30)
[2019-10-30] MEDS: IBUPROFEN 600 MG TAB PO PRN (19:43)
[2019-10-30] MEDS: OXYCODONE/ACETAMINOPHEN 5mg/325mg TAB PO PRN (19:45)
[2019-10-30] MEDS ORDERED: bisacodyL 5 MG TABEC PO SCH (20:00)
[2019-10-31] MEDS: IBUPROFEN 600 MG TAB PO PRN ×5 (00:31→20:58)
[2019-10-31] MEDS: OXYCODONE/ACETAMINOPHEN 5mg/325mg TAB PO PRN ×2 (00:31→04:52)
[2019-10-31] MEDS: MAGNESIUM HYDROXIDE SUSP 30 ML UDC PO PRN ×2 (06:40→20:57)
[2019-10-31] MEDS ORDERED: OXYCODONE HCL IR 5 MG TAB (IMMEDIATE RELEASE) PO PRN (06:41)
--- NOTE | 2019-10-31 06:48 | Obstetrical Progress Note ---
Date of Service October 31, 2019 Assessment & Plan (1) Encounter for postoperative care: 34yo s/p LTCS. Day 2 Reporting significant bloating noted. Recommended bowel care and adjusted pain medications. Otherwise doing well. Continue care Subjective Ambulation: ambulating normally Voiding: no voiding problems Passing Gas:: No Diet Tolerance:: regular diet Lochia:: Moderate Feeding Type:: breast feeding Current Pain Level(1-10): 4 Reporting significant bloating Physical Exam Constitutional WD/WN, vitals as above Respiratory normal respiratory effort; no respiratory distress and no labored breathing Gastrointestinal (Abdomen) Inspection/Auscultation: + abdomen distended Percussion/Palpation: + abdomen tender, abdomen soft and + tympanic to percussion; no guarding and abdomen not rigid Incision healing normally Genitourinary OB Exam Abdomen: + fundal height Fundus: + firm and + relation to umbilicus (Below); not tender and not boggy Results & Data Vital Signs (Past 12 Hours) Vital Signs Temp Pulse Resp BP 10/31/19 00:25 36.4 C L 88 18 104/65 10/30/19 20:15 36.7 C 106 H 18 108/65
[2019-10-31] MEDS: FERROUS SULFATE 325 MG TAB PO SCH (08:08)
[2019-10-31] MEDS: DOCUSATE SODIUM 100 MG CAP PO SCH ×2 (08:08→20:58)
[2019-10-31] MEDS: SIMETHICONE 80 MG CHEW PO SCH ×3 (08:08→20:57)
[2019-10-31] MEDS: PRENATAL VITAMIN 1 TAB PO SCH (08:08)
[2019-10-31] MEDS: ESCITALOPRAM OXALATE 10 MG TAB PO SCH (08:09)
[2019-10-31] MEDS: ACETAMINOPHEN 500 MG TAB PO PRN ×2 (11:23→20:58)
[2019-10-31] MEDS ORDERED: bisacodyL 10 MG SUPP PR PRN (16:57)
[2019-11-01] MEDS: IBUPROFEN 600 MG TAB PO PRN ×3 (00:16→10:10)
[2019-11-01] MEDS: ACETAMINOPHEN 500 MG TAB PO PRN ×2 (00:18→06:22)
[2019-11-01] MEDS: SIMETHICONE 80 MG CHEW PO SCH ×2 (07:40→07:42)
[2019-11-01] MEDS: DOCUSATE SODIUM 100 MG CAP PO SCH ×2 (07:41→07:42)
[2019-11-01] MEDS: PRENATAL VITAMIN 1 TAB PO SCH (07:42)
[2019-11-01] MEDS: FERROUS SULFATE 325 MG TAB PO SCH (07:42)
[2019-11-01] MEDS: ESCITALOPRAM OXALATE 10 MG TAB PO SCH (07:45)
--- NOTE | 2019-11-01 08:20 | Obstetrical Progress Note ---
Date of Service November 01, 2019 Assessment & Plan (1) Encounter for postoperative care: - patient concerned about her edema, discussed and explained, questions answered - no BM yet, strategies discussed - patient desires d/c - Rx/instructions given - f/u in 6 weeks for check Subjective Ambulation: ambulating normally Feeding Type:: breast feeding Physical Exam Constitutional WD/WN, vitals as above Respiratory normal respiratory effort, lungs clear to auscultation Cardiovascular RRR, no murmur, no edema Gastrointestinal (Abdomen) Incision intact, appropriate post-op tenderness Musculoskeletal (-) deep calf tenderness Results & Data Vital Signs (Past 12 Hours) Vital Signs Temp Pulse Resp BP Pulse Ox 11/01/19 00:25 97.7 F 90 16 99/63 L 96
--- NOTE | 2019-11-04 12:19 | Discharge Summary ---
Date of Service November 04, 2019 Admission HPI Per Admitting Provider Patient is a 34 yo white female EDC 10/19/19 who presents at 41 weeks for IOL. She had a cervical balloon placed last PM and started to have regular contractions at 0200. (+)bloody show. She may have been leaking some fluid as well after 0200. contractions are now every 5 minutes. GBS negative. blood type O positive. Discharge Data Consultations 10/28/19 07:31 Consult Anesthesiology Stat Procedures Performed Operation Date: 10/29/19 14:50 Actual Procedures p Section in LD; Primary Lower Uterine Transverse for the of a live girl at 1530.(Bilateral) - Aurora Teague DO Hospital Course (1) with 41 completed weeks gestation: 34yo @ 41 09/19, induction of labor for postdates, progressed to complete dilation. Pushed for 2 hours with no improvement in station, and baby began to become intolerant of labor with tachycardia. Patient elected for section. Underwent , routine postop care. Discharged home.Followup 6w. Please see chart for further details of care. Coding Level of Care Code None Diagnoses with 41 completed weeks gestation Z3A.41
== END 2019-11-01 12:25 | disposition home or self-care (01) | DRG 788 ==
LOC: 4S1 07:18 → 4S2 10-29 21:20

== ENCOUNTER 2024-06-30 05:30 | Inpatient (IN) ==
--- NOTE | 2024-06-19 15:16 | PAT Medication Instructions ---
Medication Instructions Date of Service June 19, 2024 Home Medications Medication Instructions Recorded acetone (urine) test (Ketone Urine #50 ea 04/30/24 Test strips) blood sugar diagnostic (OneTouch #150 ea 04/30/24 Verio test strips) blood-glucose meter (OneTouch #1 ea 04/30/24 Verio Reflect Meter) lancets 33 gauge (OneTouch Delica #150 ea 04/30/24 Plus Lancet) pen needle, diabetic 32 gauge x #100 ea 05/15/24/32" (BD Ultra-Fine Yennifer Pen Needle) ondansetron HCl 4 mg tablet 4 mg PO TID PRN nausea and 06/09/24 vomiting #30 tabs Medication List: levothyroxine 50 mcg capsule 50 mcg PO QAM prenat.vits,halina,[id number] 1 tab PO DAILY polyethylene glycol 3350 17 gram/dose oral powder (Miralax) 17 g PO DAILY PRN ondansetron HCl 4 mg tablet 4 mg PO TID PRN nausea and vomiting calcium 500 mg (carb,gluconate)-magnesium 250 mg (gluc,oxide) tablet (Calcium Magnesium) 2 tab PO QPM calcium carbonate (Tums) 200 mg PO UD PRN prn insulin NPH isoph U-100 human 100 unit/mL (3 mL) subcutaneous pen (Novolin N FlexPen) 30 unit subcut QPM MEDICATION INSTRUCTIONS: DO NOT take the morning of surgery calcium carbonate (Tums) 200 mg PO UD PRN prn prenat.vits,halina,[id number]-hsvl-wmanz 1 tab PO DAILY polyethylene glycol 3350 17 gram/dose oral powder (Miralax) 17 g PO DAILY PRN Take morning of surgery With a small sip of water, OTHERWISE NOTHING TO EAT OR DRINK AFTER MIDNIGHT: levothyroxine 50 mcg capsule 50 mcg PO QAM ondansetron HCl 4 mg tablet 4 mg PO TID PRN nausea and vomiting Take evening before surgery calcium 500 mg (carb,gluconate)-magnesium 250 mg (gluc,oxide) tablet (Calcium Magnesium) 2 tab PO QPM calcium carbonate (Tums) 200 mg PO UD PRN prn ondansetron HCl 4 mg tablet 4 mg PO TID PRN nausea and vomiting insulin NPH isoph U-100 human 100 unit/mL (3 mL) subcutaneous pen (Novolin N FlexPen) 30 unit subcut QPM Other Notes If you have any questions please call us at [phone] or [phone] or [phone] or [phone]
--- NOTE | 2024-06-26 09:47 | Anesthesiology Consultation ---
Date of Service June 26, 2024 Assessment & Plan (1) Encounter for pre-operative examination: Plan - Case discussed in detail with Dr. Milan who advised likelihood of high level would be less likely with upcoming , previous symptoms with emergency likely related to needed additional doses for patient comfort to chart review and potentially anxiety in setting of emergency . Patient mentions has had home care provider for her back in the past, states this has been stable throughout . 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 Able to wiggle toes and numbness around mouth resolving in pacu. spoke with OB and will do extended monitoring to confirm full resolution prior to moving to [facility]." - Exam & Advise: patient seen at [facility] 06/26/24, is scheduled 06/30/24. Patient has concern with given symptoms with emergency in 2019 attributed to high level neuraxial anesthesia/anxiety. Patient educated on neuraxial anesthesia; plan at this point for . All questions answered. Patient seems satisfied. Business card given. Total time in direct patient care > 40 minutes. Chart Review Chart Review: Acceptable Risk for Surgery and Patient seen in Pre Admission Testing Teaching & Discussion Pre-Anesthesia Teaching/Discussion Notes: Instructed NPO after midnight before surgery, except medications with 15 cc of water. Medication instructions provided according to the [facility] guidelines. History Surgery Operation Date: 06/30/24 07:30 Proposed Procedures p Section (Delivery of Baby Through Abdominal Incision) - Dayana Jules MD, FACOG Height/Weight Height: 5 ft 1 in Weight: 84 kg Allergies Allergy/AdvReac Type Severity Reaction Status Date / Time diphtheria,pertussis Allergy Intermediate Rash Verified 06/26/24 10:40 (acellular),te [From Adacel(Tdap Adolesn/Adult)(PF)] egg Allergy Intermediate inflammation, Verified 06/26/24 10:40 runny nose Milk Containing Products Allergy Intermediate inflammation, Verified 06/26/24 10:40 (Dairy) runny nose Medications Home Medications Medication Instructions Recorded Confirmed Last Taken levothyroxine 50 mcg capsule 50 mcg PO QAM 11/26/23 06/26/24 Unknown prenat.vits,halina,[id number]-[id number] 1 tab PO DAILY 12/04/23 06/26/24 Unknown polyethylene glycol 3350 17 17 g PO DAILY PRN prn 04/29/24 06/26/24 Unknown gram/dose oral powder (Miralax) acetone (urine) test (Ketone Urine #50 ea 04/30/24 06/26/24 Unknown Test strips) blood sugar diagnostic (OneTouch #150 ea 04/30/24 06/26/24 Unknown Verio test strips) blood-glucose meter (OneTouch #1 ea 04/30/24 06/26/24 Unknown Verio Reflect Meter) lancets 33 gauge (OneTouch Delica #150 ea 04/30/24 06/26/24 Unknown Plus Lancet) pen needle, diabetic 32 gauge x #100 ea 05/15/24 06/26/24 Unknown 5/32" (BD Ultra-Fine Yennifer Pen Needle) ondansetron HCl 4 mg tablet 4 mg PO TID PRN nausea and 06/09/24 06/26/24 Unknown vomiting #30 tabs calcium 500 mg 2 tab PO QPM 06/19/24 06/26/24 Unknown (carb,gluconate)-magnesium 250 mg (gluc,oxide) tablet (Calcium Magnesium) calcium carbonate (Tums) 200 mg PO UD PRN prn 06/19/24 06/26/24 Unknown insulin NPH isoph U-100 human 100 30 unit subcut QPM 06/19/24 06/26/24 Unknown unit/mL (3 mL) subcutaneous pen (Novolin N FlexPen) Active Medications Generic Name Dose Route Start Last Admin Trade Name Freq PRN Reason Stop Dose Admin Acetaminophen 1,000 mg 06/30/24 06:00 06/30/24 06:29 Acetaminophen 500 Mg Tab PO 06/30/24 18:00 1,000 mg PREOP PARDEEP Administration Past Medical History Medical History (Updated 06/26/24 @ 17:19 by Dayana Jules MD, FACOG) Nausea during , on zofran daily History of anesthesia reaction patient had anxiety/difficulty breathing/talking during emergency C section [facility] 2019 Polyhydramnios Gestational diabetes insulin controlled PMDD (premenstrual dysphoric disorder) follows with [facility] 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 Exercise / Class Metabolic Activity II 4-5 Yardwork/Stairs/Walk up hill (mild shortness of breath with one flight of stairs during later stage of , denies change or worsening-denies chest discomfort) Past Family History Family History Mother Dyslipidemia Ovarian cyst Father Heart disease Myocardial infarction Past Surgical History Surgical History History of tonsillectomy Past Anesthesia History No Family Hx of Anesthesia Complications History of PONV No Hx of PONV and Hx of Motion Sickness Social History Smoking Status: Never smoker Do You Dip or Chew Tobacco: No Hx Alcohol Use: No Hx Substance Use: No substance use type: does not use Review of Systems Snoring, denies witnessed apneas. Reports reflux with . Patient denies chest pain, fever, chills, cough, wheezing, or palpitations. Physical Exam Vital Signs Last Vital Signs Temp 36.7 C 06/30/24 05:58 Pulse 85 06/30/24 05:59 Resp 18 06/30/24 05:58 BP 109/75 06/30/24 05:59 Vitals BP 106/76 P 94 TEMP 98.7 SP02 96% on RA RESP 18 Physical Patient resting comfortably in chair in no acute distress, alert and oriented, responding appropriately throughout visit Full cervical extension range of motion without pain TMD 3.5 finger breadths Mallampati Score 3 Dentition: intact, denies chipped or loose teeth, caps/crowns, implants or bridges Lungs: normal respiratory effort. Good air movement, clear throughout to auscultation, no adventitious breath sounds Cardiac: regular rate and rhythm, no murmurs noted Carotid arteries: negative bruit bilat Testing Laboratory Results 06/30/24 05:59
--- NOTE | 2024-06-26 17:17 | History & Physical Report ---
Date of Service June 26, 2024 Assessment & Plan (1) Encounter for maternal care for low transverse scar from previous delivery: Plan: IUP t 39 weeks presents for repeat LTCS the procedure and it's risks reviewed with the patient and all questions answere d to her satisfaction. History of Present Illness Primary Care Provider: Carmine Genie Sutton Patient is a female EDC 07/07/24 who presents at 39 weeks for repeat LTCS. complicated by AMA status, GDM on insulin, polyhydramnios and hypothyroidism. testing has been reassuring. GBS -negative. Blood type O positive. Allergies Allergy/AdvReac Type Severity Reaction Status Date / Time diphtheria,pertussis Allergy Intermediate Rash Verified 06/26/24 10:40 (acellular),te [From Adacel(Tdap Adolesn/Adult)(PF)] egg Allergy Intermediate inflammation, Verified 06/26/24 10:40 runny nose Milk Containing Products Allergy Intermediate inflammation, Verified 06/26/24 10:40 (Dairy) runny nose Home Medications Medication Instructions Recorded Confirmed Type levothyroxine 50 mcg capsule 50 mcg PO QAM 11/26/23 06/26/24 History prenat.vits,halina,[id number]-[id number]-xpumw 1 tab PO DAILY 12/04/23 06/26/24 History polyethylene glycol 3350 17 17 g PO DAILY PRN prn 04/29/24 06/26/24 History gram/dose oral powder (Miralax) acetone (urine) test (Ketone Urine #50 ea 04/30/24 06/26/24 Rx Test strips) blood sugar diagnostic (OneTouch #150 ea 04/30/24 06/26/24 Rx Verio test strips) blood-glucose meter (OneTouch #1 ea 04/30/24 06/26/24 Rx Verio Reflect Meter) lancets 33 gauge (OneTouch Delica #150 ea 04/30/24 06/26/24 Rx Plus Lancet) pen needle, diabetic 32 gauge x #100 ea 05/15/24 06/26/24 Rx 5/32" (BD Ultra-Fine Yennifer Pen Needle) ondansetron HCl 4 mg tablet 4 mg PO TID PRN nausea and 06/09/24 06/26/24 Rx vomiting #30 tabs calcium 500 mg 2 tab PO QPM 06/19/24 06/26/24 History (carb,gluconate)-magnesium 250 mg (gluc,oxide) tablet (Calcium Magnesium) calcium carbonate (Tums) 200 mg PO UD PRN prn 06/19/24 06/26/24 History insulin NPH isoph U-100 human 100 30 unit subcut QPM 06/19/24 06/26/24 History unit/mL (3 mL) subcutaneous pen (Novolin N FlexPen) Patient History Medical History (Updated 06/26/24 @ 17:19 by Dayana Jules MD, FACOG) Nausea during , on zofran daily History of anesthesia reaction patient had anxiety/difficulty breathing/talking during emergency C section [facility] 2019 Polyhydramnios Gestational diabetes insulin controlled PMDD (premenstrual dysphoric disorder) 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, Dr Gentile, [facility] Hypothyroidism Surgical History History of tonsillectomy Family History Mother Dyslipidemia Ovarian cyst Father Heart disease Myocardial infarction Social History (Updated 12/04/23 @ 14:05 by Frances Garland) Smoking Status: Never smoker Second Hand Exposure: No; Do You Dip or Chew Tobacco: No; Hx Alcohol Use: No Hx Substance Use: No Preferred Language: Persian Communication Ability: Effective Riffler Tender Required: No Beliefs That Will Affect Care: None marital status: marital status details: Compa Beltran (34)- [phone] Current Living Situation: Spouse and Family Current Living Situation Comment: lives with spouse child and dog, 1 cat. spouse to change litter. 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 Feels Safe at Home: Yes Assistive Devices: None Review of Systems All systems reviewed & are unremarkable except as noted in HPI & below Physical Exam Constitutional: WD/WN, vitals as above Respiratory: normal respiratory effort, lungs clear to auscultation Cardiovascular: RRR, no murmur, no edema Psychiatric: A+Ox3, euthymic affect Genitourinary: OB Exam Abdomen: + vertex OB Exam Monitor Tracing: + external FHT monitor used, + external uterine monitor used, + category I and + normal FHT variability Coding Level of Care Code 96061 INT INP/OBS CARE MIN Diagnoses Encounter for maternal care for low transverse scar from previous delivery O34.211
[2024-06-30 06:19] LABS: Basophils # (auto) 0.04 K/uL (0.00-0.20); Basophils % (auto) 0.6 %; Eosinophils # (auto) 0.04 K/uL (0.00-0.50); Eosinophils % (auto) 0.6 %; Hematocrit (blood only) 32.6 % (37.0-47.0); Hemoglobin 10.8 g/dl (12.0-16.0); Immature Granulocytes # (auto) 0.06 K/uL (0.01-0.20); Immature Granulocytes % (auto) 0.8 %; Lymphocytes # (auto) 1.28 K/uL (1.20-3.40); Lymphocytes % (auto) 17.8 %; Mean Corpuscular Hemoglobin 26.9 pg (25.0-34.0); Mean Corpuscular Hgb Conc 33.1 g/dL (32.0-36.0); Mean Corpuscular Volume 81.3 fL (80.0-100.0); Mean Platelet Volume 11.4 fL (9.4-12.4); Monocytes # (auto) 0.45 K/uL (0.11-0.59); Monocytes % (auto) 6.3 %; Neutrophils # (auto) 5.33 K/uL (1.40-6.50); Neutrophils % (auto) 73.9 %; Platelet Count 153 K/uL (130-400); RDW Coefficient of Variation 15.9 % (11.5-14.5); RDW Standard Deviation 46.7 fL (36.4-46.3); Red Blood Count 4.01 M/uL (4.20-5.40)
[2024-06-30] MEDS: ACETAMINOPHEN 500 MG TAB PO SCH (06:29)
[2024-06-30] MEDS ORDERED: DEXAMETHASONE SOD INJ 4 MG/ML VIAL ONE (06:44)
[2024-06-30] MEDS ORDERED: MoRPHine SULFATE PF 1 MG/ML 10 ML AMP/VIAL ONE (06:44)
[2024-06-30] MEDS ORDERED: fentaNYL citrate PF 100 MCG/2 ML VIAL ONE (06:44)
[2024-06-30] MEDS ORDERED: ONDANSETRON INJ 2 MG/ML 2 ML VIAL ONE (06:44)
[2024-06-30] MEDS ORDERED: PHENYLEPHRINE HCL 25 MG/250 ML NSS IV ONE (06:50)
[2024-06-30] MEDS ORDERED: PHENYLEPHRINE 100MCG/ML 5ML SYR ONE ×2 (06:50→08:21)
[2024-06-30] MEDS ORDERED: OXYTOCIN 10 UNITS/ML VIAL ONE (06:51)
[2024-06-30] MEDS: SODIUM CHLORIDE 0.9% 1,000 ML IV SCH (06:57)
[2024-06-30] MEDS ORDERED: SODIUM CHLORIDE 0.9% 1,000 ML IV SCH (07:00)
[2024-06-30] MEDS: CITRIC ACID/SODIUM CITRATE 15 ML UDC PO SCH (07:17)
--- NOTE | 2024-06-30 07:22 | History & Physical Bridge Note ---
Date of Service June 30, 2024 History & Physical Bridge Note I have examined the patient, reviewed the History & Physical and in the interval since the performance of the History & Physical I have noted the following changes of clinical significance: no changes noted
[2024-06-30] MEDS: ceFAZolin 2000MG 2,000 MG/15 ML SYR IV SCH (07:29)
[2024-06-30] MEDS ORDERED: NALOXONE HCL 1 MG in SODIUM CHLORIDE 0.9% 1,000 ML IV PRN (08:04)
[2024-06-30] MEDS ORDERED: ONDANSETRON INJ 2 MG/ML 2 ML VIAL IV PRN (08:04)
[2024-06-30] MEDS ORDERED: oxyCODONE HCL IR 5 MG TAB (IMMEDIATE RELEASE) PO PRN (08:04)
[2024-06-30] MEDS ORDERED: NALOXONE HCL 0.08 MG in SYRINGE 1.8 ML IV PRN (08:04)
[2024-06-30] MEDS ORDERED: HYDROmorphone INJ 0.5 MG/0.5 ML SYR IV PRN (08:04)
[2024-06-30] MEDS ORDERED: NALOXONE HCL 0.4 MG/1 ML VIAL/CARP IV PRN (08:04)
[2024-06-30] MEDS ORDERED: ePHEDrine sulfate 50 MG/ML AMP IV PRN (08:04)
[2024-06-30] MEDS ORDERED: MoRPHine SULFATE PF 1 MG/ML 10 ML AMP/VIAL INT SPINAL ONE (08:04)
[2024-06-30] MEDS ORDERED: PROMETHAZINE 6.25 MG/50.25 ML BAG IV PRN (08:04)
[2024-06-30] MEDS ORDERED: diphenhydrAMINE 50 MG/ML VIAL IV PRN (08:04)
[2024-06-30] MEDS: OXYTOCIN 20 UNITS/LR 1,002 ML IV SCH (08:11)
[2024-06-30] MEDS ORDERED: DC INTRASPINAL MORPHINE SCH (08:15)
[2024-06-30] MEDS ORDERED: NO NARCOTICS OR SEDATIVES SCH (08:15)
--- NOTE | 2024-06-30 09:14 | Post Operative Brief Note ---
Immediate Post Op Note Date of Surgery June 30, 2024 Pre & Post Diagnosis Operation Date: 06/30/24 07:30 Pre-Op Diagnosis: Prior section. Repeat section. Intrauterine at term. Post-Op Diagnosis: Prior section. Repeat section. Intrauterine at term. Delivery of live male child at 0810. I identified the patient and participated in the time-out.: Yes Procedure Operation Date: 06/30/24 07:30 Actual Procedures p Section (Delivery of Baby Through Abdominal Incision)delivery of live male child at 0810 - Dayana Jules MD, FACOG Surgeon Dayana Jules MD, FACOG Metaphysician Daphne London MD/ Damian Luna MD Quantitative Blood Loss (QBL) 610 Findings Consistent with Post-Op Diagnosis gravid uterus / ovaries are tubes normal with dense omental adhesions to the anterior surface of the uterus Specimens Specimen Description: A; Placenta hold B: cord blood Drains Gaffney Catheter (inserted after spinal, draining lily yellow urine) Anesthesia Type Spinal Complications none Disposition Accompanied Patient To Recovery: Yes
[2024-06-30] MEDS ORDERED: POLYETHYLENE (MIRALAX) 17 GM PACK PO PRN (09:16)
[2024-06-30] MEDS ORDERED: SENNA 8.6 MG TAB PO PRN (09:16)
[2024-06-30] MEDS ORDERED: DIPHTHER/TETAN/PERTUS Vaccine (Tdap, Adol/Adult) 0.5mL IM ONE (09:16)
[2024-06-30] MEDS ORDERED: CALCIUM CARBONATE 500 MG CHEWABLE TAB PO PRN ×2 (09:16)
[2024-06-30] MEDS ORDERED: HYDROCORTISONE ACETATE 25 MG SUPP PR PRN (09:16)
[2024-06-30] MEDS ORDERED: BENZOCAINE 20% SPRY 85 APPLN/85 GM CAN EXT PRN (09:16)
--- NOTE | 2024-06-30 09:27 | Anesthesiology Progress Note ---
Date of Service June 30, 2024 Anesthesia Post Procedure Vital Signs Vital Signs: Temp Pulse Resp BP Pulse Ox 06/30/24 09:23 94 H 95 06/30/24 09:22 90 112/56 L 06/30/24 09:18 86 99 06/30/24 09:13 90 98 06/30/24 09:12 85 123/57 L 06/30/24 09:08 88 99 06/30/24 09:07 87 92 06/30/24 09:03 81 100 06/30/24 09:02 36.9 C 20 06/30/24 09:02 75 105/59 L 06/30/24 07:23 20 06/30/24 07:23 20 06/30/24 07:06 96 H 118/78 06/30/24 07:00 20 06/30/24 07:00 36.7 C 20 06/30/24 05:59 85 109/75 06/30/24 05:58 36.7 C 18 Transfer of Care Handoff Completed per policy Notes Mental Status: alert / awake / arousable and participated in evaluation Patient Amnestic to Procedure: No Nausea / Vomiting: adequately controlled Pain: adequately controlled Airway Patency, RR, SpO2: stable & adequate BP & HR: stable & adequate Hydration State: stable & adequate Neuraxial Anesthesia: was administered and sensory block is resolving Anesthetic Complications: no major complications apparent and Pt Satisfied with anesthetic care
[2024-06-30] MEDS: KETOROLAC 30 MG/ML VIAL IV SCH (09:39)
--- NOTE | 2024-06-30 09:42 | Operative Report ---
Post Operative Report Pre & Post Diagnosis Operation Date: 06/30/24 07:30 Pre-Op Diagnosis: Prior section. Repeat section. Intrauterine at term. Post-Op Diagnosis: Prior section. Repeat section. Intrauterine at term. Delivery of live male child at 0810. I identified the patient and participated in the time-out.: Yes Procedure Operation Date: 06/30/24 07:30 Actual Procedures p Section (Delivery of Baby Through Abdominal Incision)delivery of live male child at 0810 - Dayana Jules MD, FACOG Surgeon Dayana Jules MD, FACOG Senior Director Creative Services Daphne London MD/ Damian Luna MD Quantitative Blood Loss (QBL) 610 Findings Consistent with Post-Op Diagnosis Specimens placenta to hold Drains Gaffney to straight drainage Anesthesia Type Spinal Complications none Disposition Accompanied Patient To Recovery: Yes Disposition: L&D Indications prior section- requests repeat complicated by GDM on insulin and AMA status. Description of Procedure After the patient received adequate subarachnoid block she was prepped and draped in usual sterile fashion low transverse skin incision was made through her prior scar and carried to the fascia with the same scalpel. The fascial incision was then extended with Jarquin scissors transversely. The edges were then grasped with Tanvi clamps and the underlying rectus muscle was bluntly sharply dissected off of the overlying fascia. The omentum was adherent to the anterior surface of the uterus and this was taken off of the left side of the fundus with the Bovie. There is also omentum adherent to the right side of the uterus and this was also taken down with the Bovie. The uterus was then entered with a scalpel well above the bladder to the level of the membranes. The incision was then extended transversely by stretching the incision cephalad and caudad direction. Membranes were ruptured for clear fluid. The male was delivered from the vertex presentation with moderate fundal pressure ; a loose nuchal cord was reduced prior to delivering the shoulders. The infant was vigorous crying and moving all 4 limbs. The cord was clamped and cut and the handed handed off to Dr. Petit and the nursery staff were in attendance at the delivery. The placenta was then expressed intact with a three-vessel cord. Some retained membranes were removed using Maira clamp and a ring forcep. Uterine cavity was then explored and found to be free of any other retained tissue or membranes. The uterus was closed in 2 layers in a running lock imbricating fashion with 0 Monocryl. Bleeding was controlled with [id number] stitch on the left side of the uterus where the omentum had been adherent. Generalized oozing from the areas of other omental adhesions was controlled with the Bovie. Para clot was then placed over the area of the denuded uterine fundus. The uterine incision was examined once more and continue to have excellent hemostasis. Posterior cul-de-sac was suctioned for small amount of blood. After ensuring that the uterine incision continued to have excellent hemostasis, the uterus was placed back inside the abdominal cavity. Additional para clot was used again on the fundus of the uterus where the omental adhesions have been dissected free. Bleeding on the end of the omental edge was secured with a suture of 0 Monocryl and the Bovie. Bleeding on the rectus muscle was also secured with a [id number] stitch of 0 Monocryl. At this point hemostasis was excellent. The fascia was closed in a running fashion with 0 Vicryl. After irrigating the subcutaneous layer the skin edges were reapproximated using a subcuticular stitch of 4-0 Vicryl. Urine was clear at the end of the case mother and were doing well after delivery. I attest to the content of the Intraoperative Record and any orders documented therein. Any exceptions are noted below. OB Procedure Charges 70745
[2024-06-30] MEDS ORDERED: Nursing to Pharmacy Communication SCH (09:45)
[2024-06-30] MEDS: SIMETHICONE 80 MG CHEW PO SCH (14:50)
[2024-06-30] MEDS: ACETAMINOPHEN 325 MG TAB PO SCH (15:30)
[2024-06-30] MEDS: NALBUPHINE HCL INJ 10 MG/ML AMP IV PRN (20:13)
[2024-06-30] MEDS ORDERED: NON-FORMULARY MEDICATION (Calcium Carb,Gluc-Mag Gluc,Ox [Calcium Magnesium] 500 mg calcium PO SCH (21:00)
[2024-06-30] MEDS: DOCUSATE SODIUM 100 MG CAP PO SCH (21:37)
[2024-07-01] MEDS ORDERED: HYDROmorphone INJ 0.5 MG/0.5 ML SYR IV PRN (02:05)
[2024-07-01] MEDS ORDERED: diphenhydrAMINE Capsule 25 MG CAP PO PRN (02:05)
[2024-07-01] MEDS ORDERED: ONDANSETRON 4 MG OD TAB PO PRN (02:05)
[2024-07-01] MEDS ORDERED: ONDANSETRON INJ 2 MG/ML 2 ML VIAL IV PRN (02:05)
[2024-07-01] MEDS ORDERED: PROMETHAZINE 12.5 MG/50.5 ML BAG IV PRN (02:05)
[2024-07-01 03:43] VITALS: RESP 18
[2024-07-01] MEDS: LEVOTHYROXINE SODIUM 50 MCG TABLET PO SCH (05:29)
[2024-07-01 06:15] LABS: Basophils # (auto) 0.02 K/uL (0.00-0.20); Basophils % (auto) 0.3 %; Eosinophils # (auto) 0.04 K/uL (0.00-0.50); Eosinophils % (auto) 0.6 %; Hematocrit (blood only) 26.3 % (37.0-47.0); Hemoglobin 8.6 g/dl (12.0-16.0); Immature Granulocytes # (auto) 0.07 K/uL (0.01-0.20); Lymphocytes # (auto) 1.12 K/uL (1.20-3.40); Lymphocytes % (auto) 15.7 %; Mean Corpuscular Hemoglobin 26.5 pg (25.0-34.0); Mean Corpuscular Hgb Conc 32.7 g/dL (32.0-36.0); Mean Corpuscular Volume 80.9 fL (80.0-100.0); Mean Platelet Volume 11.3 fL (9.4-12.4); Monocytes # (auto) 0.48 K/uL (0.11-0.59); Monocytes % (auto) 6.7 %; Neutrophils # (auto) 5.41 K/uL (1.40-6.50); Neutrophils % (auto) 75.7 %; Platelet Count 129 K/uL (130-400); RDW Coefficient of Variation 16.2 % (11.5-14.5); RDW Standard Deviation 47.2 fL (36.4-46.3); Red Blood Count 3.25 M/uL (4.20-5.40); White Blood Count 7.14 K/ul (4.8-10.8)
--- NOTE | 2024-07-01 07:48 | Obstetrical Progress Note ---
Date of Service July 01, 2024 Assessment & Plan (1) S/P repeat low transverse : Plan: 38 years P2 foll Repeat LTCS, complicated by GDM 1st POD following . Both mom and baby doing well. Continue care as per protocol. Encouraged nursing with mother's milk. Encouraged ambulation. Post op Hb: 8.6---<10.8 gm% Vitals stable; Repeat Hb tomorrow. Discharge tomorrow as per protocol. Admission and Anticipated Discharge Date Admission Date: June 30, 2024 Supervising Physician Co-Signing Physician Notes Resident Physician Supervision Note: I was present with Dr. Luna during the history and exam. I discussed the case with the resident and agree with the findings and plan as documented in the note. Any exceptions or clarifications are listed here: pt doing well this am, is hungry. having some more incisional pain. episode noted in hpi reviewed with pt, i was not notified. she apparently has been up to br on her own without issues since then per nurse. hgb this am noted. vss. abd soft ff 2 down nt, ext nt calves. pod#1 s/p c/s, advised ambulation, nl diet, pain mgmt, reviewed use of narcotic. rec she use scds while in bed, apparently per nurse has been taking them off despite their recs. Documented By: Divina Ferrer MD, FACOG Subjective 38 years P2, 1st POD following delivery for repeat LTCS. Complains of pain in incision site and feet. Mentions she has passed out during night while peeing, but lasted for very short time and is doing fine now. Baby doing well. Mom Lying comfortable on bed. Pain: Moderate Lochia: Moderate, decreasing Diet: Regular OB diet Gas: Passed Peeing: Passed Urine after kimball's removal Ambulation: to Bathroom/ Corridor without any complication Answered her queries. Review of Systems Review of Systems: No SOB, chest pain, leg pain No dizziness, headache, palpitation No Blurring of vision , fever Physical Exam Physical Exam: General: Alert and oriented. No acute distress. CVS: S1 S2+ No murmurs, regular rhythm. Respiratory: CTA bilaterally. No rhonchi, wheezes, or crackles. No increased work of breathing. Abdomen: Bowel sound +. Soft, nontender Uterus: Fundus firm and palpable few cm below the umbilicus. Incision site looks healthy: Dry, No swelling, Erythema Lower extremities: No LE edema. No deep calf pain. Results & Data Vital Signs (Past 12 Hours) Vital Signs Temp Pulse Resp BP Pulse Ox O2 Del Method 07/01/24 03:30 36.7 C 84 18 99/63 L 98 Room Air 07/01/24 02:00 20 99 07/01/24 01:00 18 97 07/01/24 00:00 20 96 07/01/24 00:00 Room Air 07/01/24 00:00 36.6 C 85 20 96/55 L 98 Room Air 06/30/24 23:00 99 06/30/24 23:00 94/55 L 06/30/24 22:00 20 100 06/30/24 21:00 20 100 06/30/24 20:05 20 98 06/30/24 20:05 36.7 C 78 20 107/65 98 Room Air Resident Activity Tracking Resident Involvement: Resident Care Provided Care Provided: OB Delivery
[2024-07-01] MEDS: IBUPROFEN 600 MG TAB PO SCH (08:54)
[2024-07-01] MEDS: PRENATAL VITAMIN 1 TAB PO SCH (08:54)
[2024-07-01] MEDS: FERROUS SULFATE 325 MG TAB PO SCH (08:54)
[2024-07-01] MEDS ORDERED: NON-FORMULARY MEDICATION (Prenat.Vits,Cal,Min-Iron-Folic tablet) PO SCH (09:00)
[2024-07-01] MEDS ORDERED: KETOROLAC 30 MG/ML VIAL IV PRN (09:09)
[2024-07-01] MEDS: oxyCODONE HCL IR 5 MG TAB (IMMEDIATE RELEASE) PO PRN (13:11)
[2024-07-01] MEDS: bisacodyL 5 MG TABEC PO SCH (19:49)
[2024-07-01 21:48] VITALS: O2SAT 98
--- NOTE | 2024-07-02 05:54 | Obstetrical Progress Note ---
Date of Service July 02, 2024 Assessment & Plan (1) S/P repeat low transverse : Plan: 38 years P2 foll Repeat LTCS, complicated by GDM 2nd POD following . Both mom and baby doing well. Continue care as per protocol. Encouraged nursing with mother's milk. Encouraged ambulation. Post op Hb: 8.6---<10.8 gm% Repeat Hb awaited Patient ready for Discharge today. Admission and Anticipated Discharge Date Admission Date: June 30, 2024 Supervising Physician Co-Signing Physician Notes Resident Physician Supervision Note: I interviewed and examined the patient. Discussed with Dr. Luna and agree with findings and plan as documented in the note. Any exceptions or clarifications are listed here: POD#2 doing well. DC home today, instructions reviewed. Rx Percocet #10 tabs sent to [facility]. Followup 6w in office. Documented By: Aurora Teague, Subjective 38 years P2, 2nd POD following delivery for repeat LTCS. No active complains Baby doing well. Mom Lying comfortable on bed. Pain: Moderate Lochia: Moderate, decreasing Diet: Regular OB diet Gas: Passed Peeing: Normal Ambulation: to Bathroom/ Corridor without any complication Answered her queries. Review of Systems Review of Systems: No SOB, chest pain, leg pain No dizziness, headache, palpitation No Blurring of vision , fever Physical Exam Physical Exam: General: Alert and oriented. No acute distress. CVS: S1 S2+ No murmurs, regular rhythm. Respiratory: CTA bilaterally. No rhonchi, wheezes, or crackles. No increased work of breathing. Abdomen: Bowel sound +. Soft, nontender Uterus: Fundus firm and palpable few cm below the umbilicus. Incision site looks healthy: Dry, No swelling, Erythema Lower extremities: No LE edema. No deep calf pain. Results & Data Vital Signs (Past 12 Hours) Vital Signs Temp Pulse Resp BP Pulse Ox O2 Del Method 07/01/24 23:25 Room Air 07/01/24 23:25 36.7 C 96 H 18 98/62 L 98 Room Air 07/01/24 19:50 Room Air 07/01/24 19:50 36.6 C 92 H 18 109/73 98 Room Air Resident Activity Tracking Resident Involvement: Resident Care Provided Care Provided: OB Delivery
[2024-07-02 06:53] LABS: Hematocrit (blood only) 25.6 % (37.0-47.0); Hemoglobin 8.1 g/dl (12.0-16.0)
[2024-07-02] MEDS ORDERED: bisacodyL 10 MG SUPP PR PRN (09:09)
[2024-07-02] MEDS: IBUPROFEN 600 MG TAB PO PRN (09:31)
[2024-07-02] MEDS: MAGNESIUM HYDROXIDE SUSP 30 ML UDC PO PRN (09:43)
[2024-07-02 11:19] VITALS: BP 111/70; PULSE 90; TEMP 97.9
--- NOTE | 2024-07-02 12:50 | Discharge Summary ---
Date of Service July 02, 2024 Admission HPI Per Admitting Provider Patient is a female EDC [birth year] who presents at 39 weeks for repeat LTCS. complicated by AMA status, GDM on insulin, polyhydramnios and hypothyroidism. testing has been reassuring. GBS -negative. Blood type O positive. Admission Exam (Per Admitting) Constitutional WD/WN, vitals as above Respiratory normal respiratory effort, lungs clear to auscultation Cardiovascular RRR, no murmur, no edema Psychiatric A+Ox3, euthymic affect Genitourinary OB Exam Abdomen: + vertex OB Exam Monitor Tracing: + external FHT monitor used, + external uterine monitor used, + category I and + normal FHT variability Discharge Data Consultations 06/30/24 05:51 Consult Anesthesiology Stat Procedures Performed Operation Date: 06/30/24 07:30 Actual Procedures p Section (Delivery of Baby Through Abdominal Incision)delivery of live male child at 08 - Dayana Jules MD, [facility] (1) S/P repeat low transverse : 38 years P2 foll Repeat LTCS, complicated by GDM 2nd POD following . Both mom and baby doing well. Continue care as per protocol. Encouraged nursing with mother's milk. Encouraged ambulation. Post op Hb: 8.6---<10.8 gm% Repeat Hb awaited Patient ready for Discharge today. Discharge Plan Discharge Items Patient Disposition: Home - Self-Care Reason For Visit: History of Section Discharge Diagnosis: s/p LTCS for repeat C section Activity: Per Instructions section Non-emergency contact: Primary Care Provider and Linux Unix Engineer Call non-emergency contact if: your pain is unusual for you and your temperature is above 101 Follow-up/Referrals: Carmine Sutton PA-C [Primary Care Provider] - Diet: Regular OB Addtl Attending Provider Instructions: ACTIVITY RECOMMENDATIONS: * Gradual return to full activity over the next 2-3 weeks. * No lifting - nothing heavier than baby over the next 2-3 weeks. * Do not engage in vigorous exercise, sexual activity or sports until cleared by your physician. * Do not drive or operate any motorized equipment until cleared by your physician. * You may shower/bathe daily. MEDICATIONS: For discomfort or pain, you may use Acetaminophen (Tylenol), Ibuprofen (Advil), or Naproxen (Aleve) following the package directions. For constipation you may use Colace following the package directions. BREAST CARE: If you are not breast feeding: * Wear a supportive bra 24 hours a day for one to two weeks. * Avoid stimulating your breasts and nipples as much as possible during the first few weeks after delivery. * When taking a shower, have the warm water hit your back, not breasts. * When your breasts feel full, apply ice packs. Usually three to four times a day helps ease the discomfort. * Take a mild pain medication (Tylenol / Motrin) when you are uncomfortable. If breast feeding: * Use breast milk to lubricate nipples. Lansinoh cream may be used for sore nipples. You do not need to remove cream prior to breast feeding. If using a different brand of cream, check the label for directions regarding removal of cream prior to nursing. * Wear a supportive bra. * If having problems with breasts or breast feeding, call a bilingual sales consultant or your health care provider. SPECIAL CARE INSTRUCTIONS: When you are discharged from the hospital, it is important for you to follow the instructions listed below: * During the first week at home, you should be able to care for yourself and your baby. In addition, the usual light household activities are encouraged. * Limit your activities to the way you feel. Do not try to clean the house or move furniture. Be sensible. * If you actively engage in sports and have done so up until the time of your delivery, you may resume these activities as soon as you feel able. This may take up to one month or even longer. Use good judgment. * Continue to take your vitamins for at least six weeks after the of your baby. * Your diet need not be limited unless you were on a special diet before your delivery. Breast-feeding mothers need around 2500 calories per day and at least 64-80 ounces of fluid per day (8 to 10 glasses). * You should eat foods from the four major food groups. Crash diets or fad diets are to be avoided. Eating lean meats, fresh fruits and vegetables, low-fat dairy products, high fiber foods and a regular exercise program, will help you get back to your pre- weight without putting your health at risk. * Constipation is sometimes a problem after delivery. Take a mild laxative as needed. If breast feeding, Milk of Magnesia is acceptable to use. You may use a suppository or Fleets enema. * A daily shower or tub bath is suggested. Wash incision daily with warm soapy water and pat dry. It doesn't need to be covered unless drainage is present. * A bloody vaginal discharge will usually continue until around four weeks . A small amount of bleeding may continue for as long as six weeks. Vaginal discharge changes from the bright red bleeding after delivery to pink then brownish and finally yellowish-pink before becoming white and disappearing. * Bleeding may increase with activity. Your first period may come in 4-8 weeks. If you are breast feeding, your period may be delayed even longer. * [place] (sex) can begin whenever both you and your partner feel comfortable and do not have any form of genital infection. It is recommended that you wait at least six weeks for internal and external healing to occur. If you have questions, please talk to your health care practitioner. A condom should be used to prevent infection and . * Foreplay, gentle intercourse and lubrication is very important the first several times to prevent pain. A water-based lubricant such as K-Y jelly or Astroglide may be used. * If you have RH negative blood and your baby is RH positive, you will receive RHOGAM by injection prior to discharge. The nurse will give you a card to keep with you that has the date and place that you received RHOGAM after delivery. * During your care, you had a Rubella screen done to check for the presence of rubella antibodies in your blood. If your test was negative, you will receive a Rubella vaccine prior to discharge. This vaccine may cause a fever, soreness at the injection site and flu-like symptoms. If these symptoms persist, notify your health care practitioner. is not advised for one month after a Rubella vaccine. * Verbalizes understanding of car seat law as reviewed with patient nursing. * Car Seat hand-out given and reviewed with patient by nursing. * Shaken baby information reviewed with patient by nursing. Call you doctor if: * Heavy bleeding (saturating several pads an hour) or passing clots the size of your fist. * A fever >101 degrees F (38.3 degrees C) on two occasions four hours apart and/or chills. * Unusual pain in the pelvic or vaginal areas. * Call the doctor for any increased redness, drainage or swelling around the incision and any pain unrelieved by prescribed pain medication. * "Baby Blues" lasting longer than two weeks. If you have any questions or concerns, call your health care practitioner at . FOLLOW UP VISIT: * Please call the office at to schedule a 6 week examination. It is important you keep this appointment. It is important for you to make arrangements for either yearly or twice yearly check-ups thereafter. Pending Studies at Discharge: No Stand-Alone Forms: My [facility] OpTier, Smoking Cessation Medications and DC Order Prescriptions: New ferrous sulfate 325 mg (65 mg iron) tablet,delayed release (DR/EC) 325 mg PO BID 60 Days Qty: 120 0RF Continued prenat.vits,halina,osc-fhmb-mnlgs Tablet 1 tab PO DAILY levothyroxine 50 mcg capsule 50 mcg PO QAM Rx Instructions: two days a week polyethylene glycol 3350 [Miralax] 17 gram/dose powder 17 g PO DAILY PRN (Reason: prn) calcium carbonate [Tums] 200 mg calcium (500 mg) Tablet,Chewable 200 mg PO UD PRN (Reason: prn) Calcium Magnesium 500 mg calcium- 250 mg Tablet 2 tab PO QPM Discontinued ondansetron HCl 4 mg tablet 4 mg PO TID PRN (Reason: nausea and vomiting) Qty: 30 0RF (DME) Ketone Urine Test Strip See Rx Instructions .MEDSUPPLY Qty: 50 2RF Rx Instructions: As directed to check ketones in urine once a day in the morning (DME) OneTouch Verio test strips Strip See Rx Instructions .MEDSUPPLY Qty: 150 2RF Rx Instructions: check blood sugars 4 times a day (DME) blood-glucose meter [OneTouch Verio Reflect Meter] Misc See Rx Instructions miscellaneous .MEDSUPPLY Qty: 1 0RF Rx Instructions: As directed (DME) lancets [OneTouch Delica Plus Lancet] 33 gauge misc See Rx Instructions .MEDSUPPLY Qty: 150 2RF Rx Instructions: As directed check blood sugars 4 times a day (DME) pen needle, diabetic [BD Ultra-Fine Yennifer Pen Needle] 32 gauge x 5/32" needle See Rx Instructions miscellaneous .MEDSUPPLY Qty: 100 0RF Rx Instructions: As directed to use with insulin pen Novolin N FlexPen 100 unit/mL (3 mL) insulin pen 30 unit subcut QPM Rx Instructions: Inject 30 units at bed time; increase as needed to keep your fasting levels below 95 mg/dl; TDD up to 50 units. No Action oxycodone-acetaminophen [Percocet] 5-325 mg tablet 1 tab PO Q8H PRN (Reason: pain) Qty: 10 0RF Discharge Orders: Discharge Order (Routine); Ordered 07/02/24 Ordered By: Apurva Alarcon/Other Patient Handouts: After Delivery [place] Concerns, After a , Preventing Deep Vein Thrombosis, Understanding Depression Admission Data Admit Date/Time: 06/30/24 05:30 Attending Provider: Dayana Jules Admit Provider: Dayana Jules Primary Care Provider: Carmine Sutton Other Providers: Compa Caldwell Other Interventions: Discharge Summary Assessment (RN) Last Done: 07/02/24 12:41 Supervising Physician Co-Signing Physician Notes Resident Physician Supervision Note: I interviewed and examined the patient. Discussed with Dr. Luna and agree with findings and plan as documented in the note. Any exceptions or clarifications are listed here: POD#2 doing well. DC home today, instructions reviewed. Rx Percocet #10 tabs sent to [facility]. Followup 6w in office. Documented By: Aurora Teague DO Coding Level of Care Code 09717 IN/OBS DISCH 30 MIN/LESS Diagnoses S/P repeat low transverse Z98.891
[2024-07-02] MEDS ORDERED: ACETAMINOPHEN 325 MG TAB PO PRN (15:09)
== END 2024-07-02 15:18 | disposition home or self-care (01) | DRG 788 ==
LOC: 4S1 05:30 → EDSTATUS 07:30 → 4E2 12:00